=== PATIENT | female | born 1975 | race Asian ===

== ENCOUNTER 2024-01-05 05:37 | Emergency (ER) | payer BC, OTHER ==
[~2024-01-05] VITALS: Ht 152.4 cm; Wt 44.5 kg
[2024-01-05] MEDS ORDERED: AMIODARONE HCL 150 MG/3 ML VIAL IV ONE (06:00)
[2024-01-05] MEDS: AMIODARONE HCL IV 150 MG in IV DEXTROSE 5% 100 ML IV ONE (06:06)
[2024-01-05] MEDS: IV NORMAL SALINE 500 ML BAG IV ONE (06:12)
[2024-01-05 06:26] LABS: BASOPHILS # (AUTO) 0.1 K/UL (0.0-0.2); BASOPHILS % (AUTO) 1.1 % (0.0-2.0); EOSINOPHILS # (AUTO) 0.2 K/uL (0.0-0.7); EOSINOPHILS % (AUTO) 3.9 % (0.0-7.0); HEMATOCRIT 45.8 % (31.2-41.9); HEMOGLOBIN 15.9 g/dL (10.9-14.3); LYMPHOCYTES # (AUTO) 2.7 K/uL (0.8-4.8); LYMPHOCYTES % (AUTO) 48.8 % (20.5-51.5); MEAN CORPUSCULAR HEMOGLOBIN 30.9 uug (24.7-32.8); MEAN CORPUSCULAR HGB CONC 35 g/dL (32.3-35.6); MEAN CORPUSCULAR VOLUME 88.8 fL (75.5-95.3); MONOCYTES # (AUTO) 0.4 K/uL (0.1-1.30); MONOCYTES % (AUTO) 7.4 % (0.0-11.0); NEUTROPHILS # (AUTO) 2.2 K/uL (1.8-8.9); NEUTROPHILS % (AUTO) 38.8 % (38.5-71.5); PLATELET COUNT (AUTO) 300 K/uL (179-408); RED BLOOD CELL COUNT(AUTO) 5.16 MIL/uL (3.63-4.92); RED CELL DISTRIBUTION WIDTH 12.5 % (12.3-17.7); WHITE BLOOD COUNT (AUTO) 5.5 K/uL (3.8-11.8)
[2024-01-05] MEDS ORDERED: AMIODARONE HCL IV 450 MG in IV DEXTROSE 5% 250 ML IV PRN (06:30)
[2024-01-05 06:38] LABS: DIFFERENTIAL COMMENT 1; MAGNESIUM 2.3 mg/dL (1.8-2.4)
[2024-01-05 06:39] LABS: CALCIUM 8.7 mg/dL (8.5-10.1); CARBON DIOXIDE 20 mmol/L (21-32); CHLORIDE 109 mmol/L (98-107); CREATININE 0.8 mg/dL (0.6-1.3); GLUCOSE 110 mg/dL (74-106); SODIUM SERUM 144 mmol/L (136-145); UREA NITROGEN, BLOOD 12 mg/dL (7-18)
[2024-01-05 06:49] LABS: POTASSIUM 2.9 mmol/L (3.5-5.1)
[2024-01-05 06:52] LABS: ALANINE AMINOTRANSFERASE 36 U/L (14-59); ALKALINE PHOSPHATASE 64 U/L (50-136); ASPARTATE AMINOTRANSFERASE 55 U/L (15-37); BILIRUBIN,DIRECT 0.2 mg/dL (0.0-0.2); BILIRUBIN,TOTAL 1.1 mg/dL (0.2-1.0); NT-PRO BNP 183 pg/mL (0-125); TOTAL PROTEIN, SERUM 7.7 g/dL (6.4-8.2)
[2024-01-05] MEDS ORDERED: POTASSIUM CHLORIDE 150 ML ONE (07:49)
[2024-01-05] MEDS: POTASSIUM CHLORIDE 50 ML IV SCH (08:06)
[2024-01-05 08:46] LABS: THYROID STIMULATING HORMONE 3.892 mIU/mL (0.358-3.740)
[2024-01-05] MEDS ORDERED: POTASSIUM CHLORIDE 20 MEQ POWDER PACKET ONE ×2 (09:14→09:18)
[2024-01-05] MEDS: POTASSIUM CHLORIDE 20 MEQ POWDER PACKET PO ONE (09:18)
[2024-01-05] MEDS ORDERED: METOPROLOL SUCCINATE XL 25 MG TAB.SR.24H PO ONE (10:35)
[2024-01-05 10:38] VITALS: BP 128/71
[2024-01-05] MEDS: METOPROLOL SUCCINATE XL 25 MG TAB.SR.24H PO SCH (10:38)
[2024-01-05 12:51] LABS: CALCIUM 7.7 mg/dL (8.5-10.1); CREATININE 0.6 mg/dL (0.6-1.3)
[2024-01-05 14:46] VITALS: O2SAT 98
== END 2024-01-05 14:54 | disposition short-term general hospital (02) ==
LOC: ER 05:54
DX: I47.20 Ventricular tachycardia, unspecified (principal); R00.2 Palpitations; Z88.0 Allergy status to penicillin
CPT/HCPCS: 99291; 96365; 96366; 96375; 80076; 80048 ×2; 83880; 83735; 84443; 85025; 85730; 84484 ×2; 36415; 93005; 71045; J0282 ×2; J3480; J7040 ×2; A4606; A4663